=== PATIENT | female | born 1935 | race Caucasian/White ===

== ENCOUNTER 2020-04-12 16:04 | Outpatient (CLI) | payer MEDICARE, SELFPAY ==
--- NOTE | ~2020-04-12 | XR_ITS ---
EXAMINATION: XR UGIAC wo kub DATE: 04/12/2020 17:12 INDICATION: Gastroesophageal reflux disease without esophagitis, nausea and vomiting TECHNIQUE: The patient drank thick barium and gas producing crystals. Fluoroscopy of the esophagus, s tomach, and proximal small bowel were performed. Fluoroscopy exposure time was 2.9 minutes. The DAP f or this procedure was 13.368 Gycm2. COMPARISON: None. FINDINGS: There is no mass or stricture of the esophagus. Mild presbyesophagus is noted. There is no hiatal hernia. There was no gastroesophageal reflux with provocative maneuvers. The stomach and proxi mal small bowel show normal folding patterns. Two small diverticula are noted in the third portion of the duodenum. IMPRESSION: 1. Essentially normal upper GI. No observed reflux. Reviewed, dictated and finalized at location A.
== END 2020-04-12 16:05 | disposition home or self-care (01) ==
PROVIDERS: PCP Internal Medicine; Visit Provider Internal Medicine
DX: K21.9 Gastro-esophageal reflux disease without esophagitis (principal)
CPT/HCPCS: 74246

== ENCOUNTER 2020-04-29 09:08 | Outpatient (CLI) | payer MEDICARE, SELFPAY ==
--- NOTE | ~2020-04-29 | CT_ITS ---
EXAMINATION:CT chest wo con DATE: 04/29/2020 09:42 INDICATION: Chronic obstructive pulmonary disease, unspecified. TECHNIQUE: Computed tomography (CT) of the chest was performed without intravenous contrast. Automate d exposure control and iterative reconstruction technique were employed. The dose-length product (DLP ) was 58.36 mGy-cm. COMPARISON: Chest CT 06/27/2017 FINDINGS: There is mild scarring at the lung apices. There is mild atelectasis bilaterally. There is a mild burden of peripheral reticular opacities in the inferior lungs. There is chronic volume loss i n right middle lobe with chronic reticular and groundglass opacities. There is mild bronchiectasis in right middle lobe. There is mild bronchiectasis in lingula. No honeycombing. A calcified left lung n odule and calcified left hilar lymph nodes are consistent with old granulomatous disease. There is a small right posterior diaphragmatic hernia containing fat. No pleural effusion. The heart size is nor mal. No pericardial effusion. There are coronary artery calcifications. Calcifications in the spleen are consistent with old granulomatous disease. There are changes of cholecystectomy. There is a 1.6 c m low-attenuation mass in left adrenal gland, consistent with an adenoma. There is dextrocurvature of upper thoracic spine and levoscoliosis of lower thoracic spine. There is severe thoracic and lumbar spondylosis. IMPRESSION: 1. 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 Reviewed, dictated and finalized at location A. IMPRESSION: 1. Stable mild chronic interstitial lung disease in a pattern of nonspecific in terstitial pneumonia (NSIP).
== END 2020-04-29 09:09 | disposition home or self-care (01) ==
LOC: ANHIMG 09:11
PROVIDERS: PCP Internal Medicine; Visit Provider Nurse Practitioner Family
DX: J44.9 Chronic obstructive pulmonary disease, unspecified (principal); R06.02 Shortness of breath; Z72.0 Tobacco use
CPT/HCPCS: 71250

== ENCOUNTER 2020-05-25 01:17 | Outpatient (CLI) | payer MEDICARE, SELFPAY ==
[2020-05-25 18:35] LABS: SARS-CoV-2 RNA PCR Negative
== END 2020-05-25 01:18 | disposition home or self-care (01) ==
LOC: ANHCOVIDDT 01:17
PROVIDERS: PCP Internal Medicine; Visit Provider Internal Medicine Gastroenterology
DX: Z01.812 Encounter for preprocedural laboratory examination (principal); Z20.828 Contact with and (suspected) exposure to other viral communicable diseases
CPT/HCPCS: 87635; C9803; U0003

== ENCOUNTER 2020-05-27 01:21 | Day surgery (SDC) | payer MEDICARE, SELFPAY ==
[2020-05-19 13:27] VITALS: BMI 19.8
[2020-05-27 08:10] VITALS: BP 131/65; PULSE 75; RESP 16; TEMP 36.9; O2SAT 98; BMI 19.1
--- NOTE | 2020-05-27 08:18 | WPDANESEPPF ---
Anes - Initial Pre Proc Eval Procedure: Operation Date: 05/27/20 08:30 Proposed Procedures p Esophagogastroduodenoscopy - Wilson Calle MD Date/Time: 05/27/20 08:18 Surgeon: Wilson Calle MD Pre Op Diagnosis: dysphagia, epigastric pain Patient Data Age: 84 Gender: F Height: 5 ft 2 in Weight: 47.6 kg Last Vital Signs Temp 36.9 C 05/27/20 08:10 Pulse 75 05/27/20 08:10 Resp 16 05/27/20 08:10 BP 131/65 05/27/20 08:10 Pulse Ox 98 05/27/20 08:10 Allergies Allergy/AdvReac Type Severity Reaction Status Date / Time alendronate sodium Allergy Mild Unknown Verified 05/27/20 08:07 azithromycin Allergy Mild Unknown Verified 05/27/20 08:07 cefaclor Allergy Mild Unknown Verified 05/27/20 08:07 celecoxib Allergy Mild Unknown Verified 05/27/20 08:07 ezetimibe Allergy Mild Unknown Verified 05/27/20 08:07 ibandronate sodium Allergy Mild Unknown Verified 05/27/20 08:07 levofloxacin Allergy Mild Unknown Verified 05/27/20 08:07 rofecoxib Allergy Mild Unknown Verified 05/27/20 08:07 Sulfa (Sulfonamide Allergy Mild hives Verified 05/27/20 08:07 Antibiotics) tetracycline Allergy Mild Unknown Verified 05/27/20 08:07 valdecoxib Allergy Mild Unknown Verified 05/27/20 08:07 nitrofurantoin Allergy Unknown Unknown Verified 05/27/20 08:07 Yougclm-Tfk-Fdo Reductase Allergy Unknown Unknown Verified 05/27/20 08:07 Inhibitor ATORVASTATIN CALCIUM Allergy Mild Unknown Uncoded 05/27/20 08:07 NITROFURANTOIN MACROCRYSTAL Allergy Unknown Unknown Uncoded 05/27/20 08:07 Home Medications Medication Instructions Recorded Confirmed Type hydrocodone 5 mg-acetaminophen 325 1 tablet PO Q6H PRN 08/11/19 05/19/20 History mg tablet aspirin 81 mg tablet,delayed 81 mg PO DAILY 08/21/19 05/19/20 History release fluticasone propionate 50 1 spray NASAL DAILY 08/21/19 05/17/20 History mcg/actuation nasal spray,suspension albuterol sulfate 90 mcg/actuation 2 puff INHALATION Q4-6H PRN #8.5 gm 03/26/20 05/19/20 Rx aerosol inhaler tiotropium bromide 18 mcg capsule 1 cap INHALATION DAILY #30 cap 04/20/20 05/19/20 Rx with inhalation device omeprazole 20 mg capsule,delayed 20 mg PO BID #180 cap 04/22/20 05/19/20 Rx release sitagliptin 100 mg tablet 100 mg PO DAILY #30 tablet 04/22/20 05/19/20 Rx meclizine 12.5 mg PO BID PRN 05/19/20 05/19/20 History metoprolol succinate [Toprol XL] 25 mg PO DAILY 05/19/20 05/19/20 History Patient hx anesthesia problems: none Family hx anesthesia problems: none PMFSH Past Medical History Medical History Acromioclavicular joint arthritis Acute UTI Anxiety and depression Benign essential hypertension Benign essential hypertension Chronic low back pain Chronic low back pain Controlled diabetes mellitus COPD (chronic obstructive pulmonary disease) Depression Diarrhea Encounter for other specified surgical aftercare Encounter for routine adult health examination without abnormal findings Exercise hypoxemia Fall involving furniture as cause of accidental injury Gastro-esophageal reflux Gastroesophageal reflux disease Incomplete tear of left rotator cuff On nursing home drug therapy Other hyperlipidemia Primary osteoarthritis involving multiple joints Screening for breast cancer Swelling of left upper extremity Type 2 diabetes mellitus without complications Vitamin D deficiency Vitamin D deficiency Surgical History Surgical History H/O: hysterectomy Family History Family History Mother Family history of congestive heart failure Family history of heart disease in male family member before age 55 Sibling Family history of diabetes mellitus in first degree relative Family history of heart disease in male family member before age 55 Diabetes mellitus Patient's brother is in good health Family history of congest
[2020-05-27] MEDS: LACTATED RINGERS 1,000 ML 150 ML IV CONT (08:22)
[2020-05-27 08:32] LABS: Glucose Point of Care 94 (65-105)
--- NOTE | 2020-05-27 09:01 | WPDGICN ---
Assessment and Plan Assessment and plan (1) Epigastric abdominal pain: Code(s): R10.13 - Epigastric pain Status: Acute Assessment and Plan: Plan is for EGD to assess epigastric pain, dysphagia. In her longstanding history of GE reflux. Symptoms are worsened despite taking proton pump inhibitors. Plan to continue Prilosec 20 mg p.o. b.i.d.. Anti-reflux measures to continue. Additional recommendations after endoscopy. (2) Dysphagia: Code(s): R13.10 - Dysphagia, unspecified Status: Acute (3) Gastro-esophageal reflux: Code(s): K21.9 - Gastro-esophageal reflux disease without esophagitis Status: Acute (4) Chronic obstructive pulmonary disease: Code(s): J44.9 - Chronic obstructive pulmonary disease, unspecified Status: Acute (5) Controlled diabetes mellitus: Code(s): E11.9 - Type 2 diabetes mellitus without complications Status: Acute GI Consult Note Consult date/time: 05/27/20 09:01 HPI: Radha Ponce is a 84 year old female Seen in evaluation at the request of Dr Wisam Caceres. patient complains of upper abdominal pain after eating. She has occasional regurgitation. Symptoms have worsened over the last 3 months. Patient recently tried Prilosec 20 mg p.o. OD b.i.d. which she has taken for many years. She has a known history of GE reflux. Recently she has been losing weight. She states that when she swallows food will catch in the mid substernal portion of the chest. He denies any bleeding. Review of Systems Review of Systems: All systems reviewed & are unremarkable except as noted in HPI and below PMFSH Past Medical History Medical History Acromioclavicular joint arthritis Acute UTI Anxiety and depression Benign essential hypertension Benign essential hypertension Chronic low back pain Chronic low back pain Controlled diabetes mellitus COPD (chronic obstructive pulmonary disease) Depression Diarrhea Encounter for other specified surgical aftercare Encounter for routine adult health examination without abnormal findings Exercise hypoxemia Fall involving furniture as cause of accidental injury Gastro-esophageal reflux Gastroesophageal reflux disease Incomplete tear of left rotator cuff On shelter drug therapy Other hyperlipidemia Primary osteoarthritis involving multiple joints Screening for breast cancer Swelling of left upper extremity Type 2 diabetes mellitus without complications Vitamin D deficiency Vitamin D deficiency Surgical History Surgical History H/O: hysterectomy Family History Family History Mother Family history of congestive heart failure Family history of heart disease in male family member before age 55 Sibling Family history of diabetes mellitus in first degree relative Family history of heart disease in male family member before age 55 Diabetes mellitus Patient's brother is in good health Family history of congestive heart failure Father Family history of heart disease in male family member before age 55 Acute myocardial infarction, Onset Age: 61 Diabetes mellitus Other Cerebrovascular accident Family history of kidney disease Family history of lung disease Hypertension Social History Social History Social History: pt smoke a half pack of cigarettes a day Smoking packs per day: 1.2 Smoking cigarettes per day: 24.0 Smoking status: Current every day smoker Tobacco type: cigarettes Smoking end date: 10/15/10 Alcohol intake: current Gender identity (if verbalized by the patient): Female Sexual Orientation (if Verbalized by the Patient): Straight or Heterosexual Meds Home Medications and Allergies Home Medications Medication Instructions Recorded C
[2020-05-27] MEDS: BENZOCAINE (*SP) 60 ML SPRAY CAN (HURRICAINE) 1 SPRAY MUCOUS MEM (09:15)
[2020-05-27 09:18] VITALS: BP 116/68; PULSE 78; RESP 31; O2SAT 98
[2020-05-27 09:28] VITALS: BP 106/82; PULSE 80; RESP 24; O2SAT 98
[2020-05-27 09:38] VITALS: BP 120/57; PULSE 75; RESP 23; O2SAT 98
== END 2020-05-27 09:59 | disposition home or self-care (01) ==
PROVIDERS: PCP Internal Medicine; Visit Provider Internal Medicine Gastroenterology
PROC: 0DJ08ZZ Inspection of Upper Intestinal Tract, Via Natural or Artificial Opening Endoscopic (ICD-10-PCS; CPT 43235; principal; 2020-05-27 08:30)
DX: R10.13 Epigastric pain (principal); K21.9 Gastro-esophageal reflux disease without esophagitis; R13.10 Dysphagia, unspecified; J44.9 Chronic obstructive pulmonary disease, unspecified; E11.9 Type 2 diabetes mellitus without complications; I10 Essential (primary) hypertension; F41.8 Other specified anxiety disorders; E78.5 Hyperlipidemia, unspecified; E55.9 Vitamin D deficiency, unspecified; F17.210 Nicotine dependence, cigarettes, uncomplicated; Z79.82 Long term (current) use of aspirin
CPT/HCPCS: 43239; 87081; J2704; J7120